=== PATIENT | male | born 1990 | race Asian ===

== ENCOUNTER 2016-10-12 21:47 | Emergency (ER) | payer OTHER ==
[~2016-10-12] VITALS: Ht 167.6 cm; Wt 69.7 kg
[2016-10-12 22:02] VITALS: TEMP 37; Ht 167.6 cm; Wt 69.7 kg
[2016-10-12] MEDS ORDERED: ONDANSETRON INJ 2 MG/ML 2 ML VIAL IV STA (22:31)
[2016-10-12] MEDS ORDERED: MoRPHine SULFATE 10 MG/ML CARP/VIAL IV STA (22:31)
[2016-10-12] MEDS ORDERED: SODIUM CHLORIDE 0.9% 1000ML 1,000 ML IV ONE (22:45)
[2016-10-12 23:02] LABS: BASO % 0.4 %; BASO ABS # 0.03 K/uL (0-0.2); COMPLETE YES; EOS % 2.9 %; HEMATOCRIT 40.3 % (42-52); IG% 0.2 %; LYMPH % 43.6 %; LYMPH ABS # 3.57 K/uL (1.2-3.4); MEAN CELL VOLUME 79.8 fL (80-100); MEAN CORPUSCULAR HEMOGLOBIN 28.5 pg (25-34); MEAN CORPUSCULAR HGB CONC 35.7 g/dl (32-36); MEAN PLATELET VOLUME 10.3 fL (7.4-10.4); MONO % 9.3 %; NEUT % 43.6 %; PLATELET COUNT 297 K/uL (130-400); RED BLOOD COUNT 5.05 M/uL (4.7-6.1); WHITE BLOOD COUNT 8.18 K/uL (4.8-10.8)
[2016-10-12 23:19] LABS: BUN/CREATININE RATIO 14.2 (10-20); CALCIUM 9.3 mg/dl (8.5-10.1); CREATININE 1.1 mg/dl (0.60-1.40); POTASSIUM 3.4 mmol/L (3.5-5.1)
[2016-10-12 23:22] LABS: ALB/GLOB RATIO 1.1 (0.9-2)
[2016-10-13] MEDS ORDERED: OPTIRAY 320 IV PRN
[2016-10-13] MEDS ORDERED: ONDANSETRON HOME PACK 4MG OD TAB PO ONE (02:15)
[2016-10-13] MEDS ORDERED: NORCO 5/325MG HOME PACK PO ONE (02:15)
[2016-10-13 02:28] VITALS: BP 106/63; PULSE 71; O2SAT 98
--- NOTE | 2016-10-13 07:47 | DIAGNOSTIC IMAGING REPORT ---
ABDOMEN AND PELVIS CT WITH IV AND ORAL CONTRAST CT DOSE: 341.80 mGy.cm HISTORY: Right lower quadrant abdominal pain. TECHNIQUE: Multiaxial CT images of the abdomen and pelvis were performed following the use of intravenous and oral contrast. COMPARISON STUDY: None. FINDINGS: The lung bases are clear. The liver, spleen, gallbladder, pancreas, kidneys, and adrenal glands are within normal limits. No bowel wall thickening or obstruction. The pelvic organs are unremarkable. No suspicious lytic or blastic osseous lesions. Contrast did not reach the cecum. The appendix is likely identified anterior to the psoas muscle and extending into the right lower quadrant best seen on image 319. This is normal in caliber. No surrounding inflammatory change. Therefore, there is no evidence for acute appendicitis. A few prominent ileocolic lymph nodes. There are few prominent mesenteric lymph nodes. No pelvic free fluid. IMPRESSION: 1. No definite bowel wall thickening or obstruction. 2. The appendix is difficult to identify but appears to be within normal limits. 3. A few prominent mesenteric and ileocolic lymph nodes. This could represent a mild mesenteric adenitis. Electronically signed by: Chandler Joseph M.D. 10/13/2016 7:46 AM Dictated Date/Time: 10/13/2016 7:37 AM
--- NOTE | 2016-10-16 22:13 | EMERGENCY ROOM VISIT NOTE ---
History First contact with patient: 22:24 Chief Complaint: ABDOMINAL PAIN Stated Complaint: LOWER ABD PAIN Nursing Triage Summary: Pt started with right sided abdominal pain yesterday. Pt reports vomiting today History of Present Illness The patient is a 26 year old male who presents to the Emergency Room with complaints of breath quadrant abdominal pain for the past 2 days. The patient states that he has had nausea with vomiting. This pain worsens with palpation in the area as well as with moving his right leg. He does not have injury or trauma to explain his symptoms. No fever, chest pain, chest tightness, or shortness of breath. He rates his pain a 7/10 and nonradiating. He does not have a history of abdominal surgery in the past. No difficulty using the bathroom. He has not taken any [id number] for his symptoms. Review of Systems More than 10 systems were reviewed and otherwise negative with the exception of history of present illness. Past Medical/Surgical History No chronic medical disease Family History No pertinent family history Social History Smoking Status: Never Smoker Occupation Status: [employer] student Current/Historical Medications No Active Prescriptions or Reported Meds Allergies Coded Allergies: No Known Allergies (Unverified , 10/12/16) Physical Exam Vital Signs Date Time Temp Pulse Resp B/P Pulse Ox O2 Delivery O2 Flow Rate FiO2 10/13/16 02:28 71 18 106/63 98 10/13/16 01:38 68 18 108/77 98 Room Air 10/13/16 00:03 69 18 112/75 98 Room Air 10/12/16 22:02 37.0 85 18 117/81 97 Room Air Pain Rating (0-10): 0 Physical Exam VITALS: Vitals are noted on the nurse's note and reviewed by myself. Vital signs stable. GENERAL: Well-developed, well-nourished, male, who is in no acute distress and resting comfortably. Patient is cooperative with the examination. HEAD: Normocephalic atraumatic. HEART: Regular rate and rhythm without murmurs gallops or rubs. LUNGS: Clear to auscultation bilaterally without wheezes, rales or rhonchi. No retractions or accessory muscle use. ABDOMEN: Positive normal bowel sounds x 4. Soft with positive right lower quadrant tenderness on palpation. No rebound or guarding. No CVA tenderness. MUSCULOSKELETAL: No muscle atrophy, erythema, or edema noted. Full range of motion without joint tenderness in all extremities. Medical Decision & Procedures ER Provider Diagnostic Interpretation: Preliminary Findings Only See Final Report For Complete Findings CT ABDOMEN & PELVIS: No priors. The appendix is not identified with high degree of certainty. Enteric contrast was given but the patient was examined prior to opacification of cecum. Questionable portions of normal appendix seen descending retrocecal from cecum anterior to right psoas muscle. Images 60-67/series 2. No secondary signs for appendicitis. Small mesenteric nodes including a cluster in the right-sided mesentery. Nonspecific. Differential includes mesenteric adenitis. Laboratory Results 10/12/16 22:18 Red Blood Count 5.05, Mean Corpuscular Volume 79.8, Mean Corpuscular Hemoglobin 28.5, Mean Corpuscular Hemoglobin Concent 35.7, Mean Platelet Volume 10.3, Neutrophils (%) (Auto) 43.6, Lymphocytes (%) (Auto) 43.6, Monocytes (%) (Auto) 9.3, Eosinophils (%) (Auto) 2.9, Basophils (%) (Auto) 0.4, Neutrophils # (Auto) 3.56, Lymphocytes # (Auto) 3.57, Monocytes # (Auto) 0.76, Eosinophils # (Auto) 0.24, Basophils # (Auto) 0.03 10/12/16 22:18 Test 10/12/16 22:18 White Blood Count 8.18 K/uL (4.8-10.8) Red Blood Count 5.05 M/uL (4.7-6.1) Hemoglobin 14.4 g/dL (14.0-18.0) Hematocrit 40.3 % (42-52) Mean Corpuscular Volume 79.8 fL (80-100) Mean Corpuscular Hemoglobin 28.5 pg (25-34) Mean Corpuscular Hemoglobin Concent 35.7 g/dl (32-36) Platelet Count 297 K/uL (130-400) Mean Platelet Volume 10.3 fL (7.4-10.4) Neutrophils (%) (Auto) 43.6 % Lymphocytes (%) (Auto) 43.6 % Monocytes (%) (Auto) 9.3 % Eosinophils (%) (Auto) 2.9 % Basophils (%) (Auto) 0.4 % Neutrophils # (Auto) 3.56 K/uL (1.4-6.5) Lymphocytes # (Auto) 3.57 K/uL (1.2-3.4) Monocytes # (Auto) 0.76 K/uL (0.11-0.59) Eosinophils # (Auto) 0.24 K/uL (0-0.5) Basophils # (Auto) 0.03 K/uL (0-0.2) RDW Standard Deviation 37.7 fL (36.4-46.3) RDW Coefficient of Variation 13.2 % (11.5-14.5) Immature Granulocyte % (Auto) 0.2 % Immature Granulocyte # (Auto) 0.02 K/uL (0.00-0.02) Anion Gap 9.0 mmol/L (3-11) Est Creatinine Clear Calc Drug Dose 92.6 ml/min Estimated GFR () 107.6 Estimated GFR (Non- 92.8 BUN/Creatinine Ratio 14.2 (10-20) Calcium Level 9.3 mg/dl (8.5-10.1) Total Bilirubin 0.3 mg/dl (0.2-1) Aspartate Amino Transf (AST/SGOT) 17 U/L (15-37) Alanine Aminotransferase (ALT/SGPT) 40 U/L (12-78) Alkaline Phosphatase 70 U/L (45-117) Total Protein 7.7 gm/dl (6.4-8.2) Albumin 4.1 gm/dl (3.4-5.0) Globulin 3.6 gm/dl (2.5-4.0) Albumin/Globulin Ratio 1.1 (0.9-2) Lipase 218 U/L (73-393) Medications Administered Medications (Trade) Dose Ordered Sig/Michi Route Start Time Stop Time Status Last Admin Dose Admin Sodium Chloride (Nss 1000ml) 1,000 ml @ 999 mls/hr Q1H1M ONCE IV 10/12/16 22:45 10/12/16 23:45 DC 10/12/16 22:45 999 MLS/HR Morphine Sulfate (MoRPHine SULFATE INJ) 6 mg NOW STAT IV 10/12/16 22:31 10/12/16 22:33 DC 10/12/16 22:46 6 MG Ondansetron HCl (Zofran Inj) 4 mg NOW STAT IV 10/12/16 22:31 10/12/16 22:33 DC 10/12/16 22:46 4 MG Acetaminophen/ Hydrocodone Bitart ([place] 5/325mg Home Pack) 1 homepack UD ONCE PO 10/13/16 02:15 10/13/16 02:16 DC 10/13/16 02:27 1 HOMEPACK Ondansetron HCl (ZOFRAN ODT 4MG Home Pack) 1 homepack UD ONCE PO 10/13/16 02:15 10/13/16 02:16 DC 10/13/16 02:28 1 HOMEPACK ED Course Physical exam and history were performed. Nursing notes and EMR were reviewed. Patient appears to have right lower quadrant abdominal pain. He is tender in this area on examination. IV access was established and labs were obtained. The patient was hydrated and medicated as above. Because of his symptoms and tenderness I did elect perform a CT scan with IV and oral contrast. The patient will review those above and was reviewed. He does not have a significantly elevated white blood cell count, anemia, bandemia, or gross electrolyte imbalance. Lipase and transaminases are nondiagnostic. The patient CT scan is without significant acute surgical abdominal findings. He does appear to have a mesenteric adenitis, which would clinically correlate with his symptoms. I discussed the findings with patient, and he does appear stable for discharge home. The patient will need close follow-up in the next 1-2 days either in the ER with his PCP for further management. The patient was given further instructions as below invited back to the ER with any new, worsening, or concerning symptoms. The chart was completed utilizing [email or web address] Speech Voice Recognition Software. Grammatical errors, random word insertions, pronoun errors, and incomplete sentences are an occasional consequence of this system due to software limitations, ambient noise, and hardware issues. Any formal questions or concerns about the content, text, or information contained within the body of this dictation should be directly addressed to the provider for clarification. . Medical Decision Differential diagnosis: Etiologies such as appendicitis, diverticulitis, PUD, biliary pathology, UTI, pancreatitis, obstruction, mesenteric ischemia, aortic pathology, infections, inflammatory bowel disease, renal colic, as well as others were entertained. Impression Primary Impression: Right lower quadrant abdominal pain Additional Impression: Mesenteric adenitis Departure Information Dispostion Home / Self-Care Condition GOOD Prescriptions No Active Prescriptions or Reported Meds Forms HOME CARE DOCUMENTATION FORM, IMPORTANT VISIT INFORMATION Patient Instructions My [facility] Additional Instructions You were seen and evaluated today on an emergency basis only. This is not a substitute for, or an effort to provide, complete comprehensive medical care. It is not possible to recognize and treat all injuries or illnesses in a single emergency department visit. For this reason it is recommended that you followup with [facility] this week for ongoing care and evaluation. We recommend a repeat abdominal exam in the next 1-2 days. For baseline pain relief you may alternate ibuprofen and acetaminophen every 4 hours for pain control. Take 600 mg ibuprofen (Advil) and then 4 hours later take 1000 mg acetaminophen (Tylenol). Do not take more than 3000 mg acetaminophen in a single day. [place] (hydrocodone/acetaminophen) 5/325 mg (homepack) every 6 hours as needed for worsening breakthrough pain. Do not drink or drive on [place]. This medication will likely make you tired. Do not take [place] and Tylenol at the same time as both contain acetaminophen. [place] may cause constipation. You may wish to take an [id number] stool softener like Colace if this occurs. Zofran 1 tablet every 6 hrs as needed for nausea. You are welcome to return to the emergency department anytime with new, worsening, or concerning symptoms. Problem Qualifiers
== END 2016-10-13 02:28 | disposition home or self-care (01) ==
LOC: C.EDB 21:49 → C.EDA 10-13 02:28
DX: R10.31 Right lower quadrant pain (principal); I88.0 Nonspecific mesenteric lymphadenitis; R11.2 Nausea with vomiting, unspecified